=== PATIENT | male | born 1985 | race Caucasian/White ===

== ENCOUNTER → 2024-07-16 08:12 | Outpatient (REF) | payer BC, SELFPAY | LOC: RAD 08:12 | PROVIDERS: ATTENDING PHYSICIAN Nurse Practitioner Family; FAMILY PHYSICIAN Internal Medicine | DX: R22.2 Localized swelling, mass and lump, trunk (principal) | CPT/HCPCS: 76604 ==

== ENCOUNTER → 2024-09-03 12:49 | Outpatient (REF) | payer BC, SELFPAY | LOC: MRI 3T 12:49 | PROVIDERS: ATTENDING PHYSICIAN Nurse Practitioner Family | DX: R22.2 Localized swelling, mass and lump, trunk (principal) | CPT/HCPCS: 73220; A9575 ==